=== PATIENT | female | born 1990 | race Two or more races ===

== ENCOUNTER 2017-09-25 12:20 | Outpatient (CLI) | payer OTHER ==
[~2017-09-25 12:20] MED LIST: IRON1 TA1; PRENATAL1 TAB
== END 2017-09-25 12:30 | disposition home or self-care (01) ==
LOC: LAB 12:20
DX: R51 Headache (principal)

== ENCOUNTER 2017-09-27 07:52 | Outpatient (CLI) | payer OTHER | END 2017-09-27 17:00 | disposition home or self-care (01) | LOC: TOM 07:52 | DX: R51 Headache (principal); R20.2 Paresthesia of skin ==